=== PATIENT | female | born 1995 | race Caucasian/White ===

== ENCOUNTER 2019-12-15 00:35 | Inpatient (IN) | payer BC ==
[2019-12-15] MEDS ORDERED: Morphine 4 MG/ML VIAL SLOW IVP PRN ×2 (04:07→09:09)
[2019-12-15] MEDS ORDERED: Ondansetron ODT 4 MG TAB SL PRN (04:15)
[2019-12-15] MEDS ORDERED: Sodium Chloride 0.9% 1,000 ML IV SCH (04:15)
[2019-12-15] MEDS ORDERED: Ondansetron PF 4 MG/2 ML Vial IVP PRN ×2 (04:15→09:09)
[2019-12-15 04:27] VITALS: BMI 34.5
[2019-12-15] MEDS ORDERED: Piperacillin/Tazobactam 4.5 GM in Sodium Chloride 0.9% 100 ML IVPB SCH (06:00)
[2019-12-15] MEDS ORDERED: Dextrose 5% in Water 1,000 ML IV PRN (09:09)
[2019-12-15] MEDS ORDERED: Morphine 2 MG/ML VIAL SLOW IVP PRN (09:09)
[2019-12-15] MEDS ORDERED: Dextrose 50% Abboject 50 ML SYRINGE SLOW IVP PRN (09:09)
[2019-12-15] MEDS ORDERED: Acetaminophen 325 MG TAB PO PRN (09:09)
[2019-12-15] MEDS ORDERED: hydrALAZINE 20 MG/ML VIAL SLOW IVP PRN (09:09)
[2019-12-15] MEDS ORDERED: Promethazine HCl 25 MG/ML VIAL IM PRN (09:09)
--- NOTE | 2019-12-15 09:46 | HP ---
CHIEF COMPLAINT: Lower abdominal pain. HISTORY OF PRESENT ILLNESS: This is a 24-year-old female with a 2-day history of crampy lower abdominal pain, became more localized in the right lower quadrant overnight, described as 9/10 and sharp. When she 1st presented to [facility] Emergency Room, she was very tachycardic into the 140s. She had 2 L of saline and her pulse came down into the low 100. CT scan showed localized perforation of the sigmoid colon without free anterior perforation. She is stabilized with IV fluids. She is admitted to my service at [facility]. She has never had any colon problems before. There is a family history of diverticulitis, but no colon cancer. Her father has had several polyps removed. She denies history of inflammatory bowel disease, Crohn's, or ulcerative colitis. PAST MEDICAL HISTORY: She denies. SURGICAL HISTORY: 1. Tonsillectomy. 2. Adenoidectomy. ALLERGIES: NO KNOWN DRUG ALLERGIES. SOCIAL HISTORY: No smoking or alcohol or other drugs. REVIEW OF SYSTEMS: Ten-system review of systems is otherwise negative unless described above. PHYSICAL EXAMINATION: VITAL SIGNS: Her pulse is 101, respirations are 18, temperature 98.6, and blood pressure 108/70. HEENT: Sclerae anicteric. Oropharynx clear. NECK: No lymphadenopathy. CHEST: Clear. HEART: Regular rate. ABDOMEN: Soft, diffusely mildly distended, tender in the left lower quadrant and right lower quadrant with guarding without rebound. No diffuse peritoneal signs. IMAGING STUDIES: CT scan reviewed from [facility], revealing sigmoid diverticulitis, localized mild phlegmon with some air that is outside of the colon, but no free intraperitoneal air. No air under the diaphragms. No abscess. ASSESSMENT: Diverticulitis, moderate to severe. PLAN: Continue Zosyn. I described diverticulitis and its etiology and treatment. She does have [id number] diverticulitis. If symptoms are not improved, she may need sigmoid colectomy and colostomy during this hospitalization. Otherwise, we will convert IV antibiotics to p.o. antibiotics and discharge home within the next 48 hours. For now, supportive care. Job ID: [id number]
[2019-12-15] MEDS: Piperacillin/Tazobactam 3.375 GM in Sodium Chloride 0.9% 100 ML IVPB SCH ×3 (11:24→23:37)
[2019-12-15] MEDS: D5 1/2 NS w/20 mEq KCL 1,000 ML IV SCH ×2 (11:24→18:10)
[2019-12-15] MEDS: Ketorolac Tromethamine 30 MG/ML VIAL IVP PRN ×2 (14:50→21:25)
[2019-12-15] MEDS: Famotidine 20 MG TAB PO SCH (20:32)
[2019-12-15] MEDS: Famotidine/PF 20 mg/2ml Vial SLOW IVP SCH (20:32)
[2019-12-15] MEDS: Enoxaparin Sodium 40 MG/0.4 ML SYRINGE SC SCH (20:32)
[2019-12-16] MEDS: D5 1/2 NS w/20 mEq KCL 1,000 ML IV SCH ×2 (04:25→05:40)
[2019-12-16 05:04] LABS: #Eosinphils 0.2 thou/uL (0.0-0.7); #Lymphocytes 1.5 thou/uL (1.20-3.40); #Monocytes 0.7 thou/uL (0.11-0.59); #Neutrophils 4.9 thou/uL (1.40-6.50); %Basophils 0.2 % (0.0-1.0); %Eosinophils 2.4 % (0.0-10.0); %Lymphocytes 19.9 % (21.0-51.0); %Monocytes 9.9 % (0.0-10.0); %Neutrophils 67.6 % (42.0-75.0); Hemoglobin 11.5 g/dL (12.0-16.0); Mean Corpuscular HGB CONC 33.1 g/dL (32.0-36.0); Mean Corpuscular Hemoglobin 29.1 pg (27.0-31.0); Mean Corpuscular Volume 87.9 fL (78.0-98.0); Mean Platelet Volume 9.4 fL (7.4-10.4); Platelet Count 198 thou/uL (130-400); RBC Distribution Width 11.5 % (11.5-14.5); Red Blood Cell (RBC) Count 3.95 mill/uL (4.20-5.40); White Blood Cell (WBC) Count 7.3 thou/uL (4.8-10.8)
[2019-12-16 05:28] LABS: Anion Gap 10 mmol/L (10-20); BUN (Urea Nitrogen) 6 mg/dL (7.0-18.7); Calc. Creatinine Clearance 184 mL/min (70-130); Calcium 8.1 mg/dL (7.8-10.44); Carbon Dioxide 23 mmol/L (22-29); Chloride 109 mmol/L (98-107); Estimated GFR-MDRD Greater than 90; Glucose 113 mg/dL (70-105); Potassium 3.9 mmol/L (3.5-5.1); Sodium 138 mmol/L (136-145)
[2019-12-16] MEDS: Piperacillin/Tazobactam 3.375 GM in Sodium Chloride 0.9% 100 ML IVPB SCH ×4 (05:40→23:35)
[2019-12-16] MEDS: Famotidine/PF 20 mg/2ml Vial SLOW IVP SCH ×2 (08:18→20:32)
[2019-12-16] MEDS: Ketorolac Tromethamine 30 MG/ML VIAL IVP PRN (08:18)
[2019-12-16] MEDS: Famotidine 20 MG TAB PO SCH ×2 (08:28→20:31)
[2019-12-16] MEDS ORDERED: D5 1/2 NS w/20 mEq KCL 1,000 ML IV SCH (10:39)
--- NOTE | 2019-12-16 13:33 | PDOC.GSPN ---
Surgery Progress Note: Subj - Subjective Patient reports: feels better (pain much improved. no nausea) Surgery Progress Note: Obj - Vital signs Vital signs: Vital Signs - Most Recent Temp Pulse Resp BP Pulse Ox 97.8 F 94 16 136/92 H 97 12/16/19 11:00 12/16/19 11:00 12/16/19 11:00 12/16/19 11:00 12/16/19 11:00 - Physical Exam General: no distress Neck: no bruits Respiratory: clear to auscultation Abdomen: soft, tender (in the LLQ although much improved) Surgery Progress Note: Results - Labs Result Diagrams: 12/16/19 04:51 12/16/19 04:51 Lab results: Laboratory Results - last 12 hr 12/16/19 12/16/19 04:51 04:51 WBC 7.3 RBC 3.95 L Hgb 11.5 L Hct 34.7 L MCV 87.9 MCH 29.1 MCHC 33.1 RDW 11.5 Plt Count 198 MPV 9.4 Neutrophils % 67.6 Lymphocytes % 19.9 L Monocytes % 9.9 Eosinophils % 2.4 Basophils % 0.2 Neutrophils # 4.9 Lymphocytes # 1.5 Monocytes # 0.7 H Eosinophils # 0.2 Basophils # 0.0 Sodium 138 Potassium 3.9 Chloride 109 H Carbon Dioxide 23 Anion Gap 10 BUN 6 L Creatinine 0.73 Estimated GFR (MDRD) Greater than 90 Glucose 113 H Calcium 8.1
[2019-12-16] MEDS: Enoxaparin Sodium 40 MG/0.4 ML SYRINGE SC SCH (20:32)
[2019-12-17] MEDS: Piperacillin/Tazobactam 3.375 GM in Sodium Chloride 0.9% 100 ML IVPB SCH (05:26)
[2019-12-17 07:31] VITALS: BP 114/79; TEMP 98.2
[2019-12-17 07:56] LABS: #Eosinphils 0.2 thou/uL (0.0-0.7); #Lymphocytes 1.4 thou/uL (1.20-3.40); #Monocytes 0.4 thou/uL (0.11-0.59); #Neutrophils 5.7 thou/uL (1.40-6.50); %Basophils 0.3 % (0.0-1.0); %Lymphocytes 18.1 % (21.0-51.0); %Monocytes 5.6 % (0.0-10.0); %Neutrophils 73.1 % (42.0-75.0); Hemoglobin 11.7 g/dL (12.0-16.0); Mean Corpuscular Volume 87.7 fL (78.0-98.0); Mean Platelet Volume 8.8 fL (7.4-10.4); Platelet Count 238 thou/uL (130-400); RBC Distribution Width 11.3 % (11.5-14.5); Red Blood Cell (RBC) Count 4.04 mill/uL (4.20-5.40); White Blood Cell (WBC) Count 7.8 thou/uL (4.8-10.8)
[2019-12-17] MEDS: Famotidine 20 MG TAB PO SCH (08:31)
[2019-12-17] MEDS: Famotidine/PF 20 mg/2ml Vial SLOW IVP SCH (08:32)
--- NOTE | 2019-12-17 08:37 | PDOC.GSPN ---
Surgery Progress Note: Subj - Subjective Narrative: Patient has no new complaints other than recent onset diarrhea today. She has been tolerating her liquid diet well and has an appetite. She is ambulatory, making adequate urine, and is having BMs. Patient endorses some swelling in the left UE distal to where there was a wrap tied around her arm. Denies fever, chills, nausea, vomiting, abdominal pain, or constipation. Surgery Progress Note: Obj - Vital signs Vital signs: Vital Signs - Most Recent Temp Pulse Resp BP Pulse Ox 98.2 F 70 16 114/79 97 12/17/19 07:25 12/17/19 07:25 12/17/19 07:25 12/17/19 07:25 12/17/19 07:25 - Physical Exam General: no distress Respiratory: normal expansion, normal respiratory effort Abdomen: soft, non tender, nondistended Hernia: none Integumentary: no abnormal pigmentation Musculoskeletal: normal posture Additional exam: Extremities: +1 left UE edema, no LE edema bilaterally Surgery Progress Note: Results - Labs Result Diagrams: 12/17/19 07:40 12/16/19 04:51 Lab results: Laboratory Results - last 12 hr 12/17/19 07:40 WBC 7.8 RBC 4.04 L Hgb 11.7 L Hct 35.4 L MCV 87.7 MCH 29.0 MCHC 33.0 RDW 11.3 L Plt Count 238 MPV 8.8 Neutrophils % 73.1 Lymphocytes % 18.1 L Monocytes % 5.6 Eosinophils % 3.0 Basophils % 0.3 Neutrophils # 5.7 Lymphocytes # 1.4 Monocytes # 0.4 Eosinophils # 0.2 Basophils # 0.0 Surgery Progress Note: A/P - Plan Plan: My assessment of this patient is that she is a 24 YO female who presented with abdominal pain secondary to diverticulitis with perforation. She is currently in no acute distress, has an appetite, is ambulating, and urinating/defecating. Her WBC this morning is 7.8 and she has not had fever for more than 24 hours. My plan is to d/c her today on an oral Abx Levaquin and (Metronidazole) for 10 days. I recommend PRN ibuprofen if abdominal "discomfort" persists. Patient should return if she experiences new onset fever and/or abdominal pain. F/U in the office in 2 weeks. Addendum - Physician - Physician Attestation Date/Time: 12/17/19 1013 I personally performed or re-performed the physical examination and medical decision making. I have verified all student documentation or findings, including history, physical exam and/or medical decision making. Doing well. Home on levaquin flagyl for 10 days
[2019-12-17] MEDS ORDERED: Saccharomyces boulardii 250 MG CAP PO SCH (09:00)
== END 2019-12-17 12:49 | disposition home or self-care (01) | DRG 392 ==
LOC: ERS 00:35 → SJJU 01:26
PROVIDERS: ADMIT Surgery; ATTEND Surgery
DX: K57.20 Diverticulitis of large intestine with perforation and abscess without bleeding (principal)
CPT/HCPCS: 36415; 80048; 85025; 87040; 99285; J1650; J1885; J2270; J2405; J2543; J3480; J3490; S0028

== ENCOUNTER 2022-02-24 03:06 | Emergency (ER) | payer BC ==
[2022-02-24] MEDS ORDERED: Ondansetron PF 4 MG/2 ML Vial ONE (03:30)
[2022-02-24 03:58] LABS: Bilirubin Negative (Negative); Blood, Urine 2+ (Negative); Clarity Clear (Clear); Glucose, Urine (Dipstick) Normal (Negative); Ketone, Urine Negative (Negative); Leukocyte Negative Leu/uL (Negative); Nitrite Negative (Negative); Protein, Urine (Dipstick) Negative (Neg-Trace); Specific Gravity, Urine 1.027 (1.002-1.036); Squamous Epithelial 0-3 HPF (0-3); Urobilinogen Normal mg/dL (Less than 2); WBC/HPF 0-3 HPF (0-3); pH, Urine 5.5 (5.0-9.0)
[2022-02-24 04:00] LABS: Bacteria/HPF Rare-Few HPF (None Seen)
[2022-02-24 05:21] LABS: #Eosinphils 0.1 thou/uL (0.0-0.7); #Lymphocytes 1.4 thou/uL (1.20-3.40); #Monocytes 0.7 thou/uL (0.11-0.59); #Neutrophils 8.5 thou/uL (1.40-6.50); %Basophils 0.1 % (0.0-1.0); %Eosinophils 1.3 % (0.0-10.0); %Monocytes 6.3 % (0.0-10.0); %Neutrophils 79.4 % (42.0-75.0); Hemoglobin 11.9 g/dL (12.0-16.0); Mean Corpuscular HGB CONC 33.4 g/dL (32.0-36.0); Mean Corpuscular Hemoglobin 27.8 pg (27.0-31.0); Mean Corpuscular Volume 83.3 fl (78.0-98.0); Mean Platelet Volume 9.3 fL (7.4-10.4); Platelet Count 201 10x3/uL (130-400); RBC Distribution Width 12.4 % (11.5-14.5); Red Blood Cell (RBC) Count 4.29 mill/uL (4.20-5.40); White Blood Cell (WBC) Count 10.6 10x3/uL (4.8-10.8)
[2022-02-24 05:26] LABS: BHCG - Serum Negative (NEGATIVE); Pregs Control Background? CLEAR/WHITE (CLR/WHITE); Pregs Control Bar Appear? YES (CONTROL BAR)
[2022-02-24 05:45] LABS: ALT (SGPT) 17 U/L (8-55); AST (SGOT) 16 U/L (5-34); Albumin 3.6 g/dL (3.5-5.0); Alkaline Phosphatase 67 U/L (40-110); Anion Gap 11 mmol/L (10-20); BUN (Urea Nitrogen) 10 mg/dL (7.0-18.7); Bilirubin, Total 0.3 mg/dL (0.2-1.2); Calc. Creatinine Clearance 0 mL/min (70-130); Calcium 8.5 mg/dL (7.8-10.44); Carbon Dioxide 24 mmol/L (22-29); Chloride 105 mmol/L (98-107); Estimated GFR 110; Globulin 2.9 g/dL (2.4-3.5); Glucose 107 mg/dL (70-105); Lipase 13 U/L (8-78); Potassium 4.3 mmol/L (3.5-5.1); Protein, Total 6.5 g/dL (6.0-8.3); Sodium 136 mmol/L (136-145)
[2022-02-24] MEDS ORDERED: Ketorolac Tromethamine 30 MG/ML VIAL ONE (06:59)
[2022-02-24] MEDS ORDERED: Iopamidol 370 76% 100 ML VIAL ONE (12:53)
== END 2022-02-24 07:05 | disposition home or self-care (01) ==
LOC: ERS 03:06
DX: K57.32 Diverticulitis of large intestine without perforation or abscess without bleeding (principal)
CPT/HCPCS: 36415; 74177; 80053; 81003; 81015; 83690; 84703; 85025; 96372; J1885; J2405; Q9967

== ENCOUNTER 2023-09-10 04:15 | Emergency (ER) | payer BC ==
[2023-09-10 06:04] LABS: Pregnancy Test - Urine (BHCG) Negative (Negative); Pregu Control Background? CLEAR/WHITE (CLR/WHITE); Pregu Control Bar Appear? YES (CONTROL BAR); Specific Gravity 1.016 (1.002-1.036)
[2023-09-10 06:04] LABS: Bacteria/HPF 1+ HPF (None Seen); Bilirubin Negative (Negative); Blood, Urine Trace (Negative); CAUTI Indications for Culture Pelvic or flank pain; Clarity Clear (Clear); Glucose, Urine (Dipstick) Normal (Negative); Ketone, Urine Negative (Negative); Leukocyte Negative Leu/uL (Negative); Nitrite Negative (Negative); Protein, Urine (Dipstick) Negative (Neg-Trace); Specific Gravity, Urine 1.016 (1.002-1.036); Urobilinogen Normal mg/dL (Less than 2); WBC/HPF 0-3 HPF (0-3)
[2023-09-10 06:05] LABS: Urine Culture Reflex No No
[2023-09-10 06:14] LABS: #Basophils 0.03 10x3/uL (0.0-0.2); %Basophils 0.3 % (0.0-1.0); %Eosinophils 1.1 % (0.0-10.0); %Monocytes 5.7 % (0.0-10.0); %Neutrophils 76.6 % (42.0-75.0); Hemoglobin 12.6 g/dL (12.0-16.0); Mean Corpuscular HGB CONC 32.3 g/dL (32.0-36.0); Mean Corpuscular Hemoglobin 25.4 pg (27.0-31.0); Mean Corpuscular Volume 78.5 fL (78.0-98.0); Mean Platelet Volume 10.9 fL (7.4-10.4); Platelet Count 278 10x3/uL (130-400); RBC Distribution Width 13.8 % (11.5-14.5); Red Blood Cell (RBC) Count 4.97 mill/uL (4.20-5.40)
[2023-09-10 06:36] LABS: ALT (SGPT) 12 U/L (8-55); AST (SGOT) 12 U/L (5-34); Albumin 3.7 g/dL (3.5-5.0); Alkaline Phosphatase 77 U/L (40-110); Anion Gap 12 mmol/L (10-20); BUN (Urea Nitrogen) 10 mg/dL (7.0-18.7); Bilirubin, Total 0.5 mg/dL (0.2-1.2); Calc. Creatinine Clearance 0 mL/min (70-130); Calcium 9.4 mg/dL (7.8-10.44); Carbon Dioxide 25 mmol/L (22-29); Chloride 104 mmol/L (98-107); Estimated GFR 107; Globulin 3.8 g/dL (2.4-3.5); Glucose 108 mg/dL (70-105); Potassium 3.9 mmol/L (3.5-5.1); Protein, Total 7.5 g/dL (6.0-8.3); Sodium 137 mmol/L (136-145)
[2023-09-10] MEDS ORDERED: Iopamidol-370 76% 500 ML MDV (1 ML CHARGE) ONE (11:41)
== END 2023-09-10 09:06 | disposition home or self-care (01) ==
LOC: ERS 04:15
DX: K57.32 Diverticulitis of large intestine without perforation or abscess without bleeding (principal)
CPT/HCPCS: 74177; 80053; 81001; 81025; 85025; Q9967